=== PATIENT | female | born 1950 | race Caucasian/White ===

== ENCOUNTER 2017-11-04 05:55 | Day surgery (SDC) | payer MEDICARE, BC ==
[2017-11-04] MEDS ORDERED: PROPOFOL 40 ML (08:56)
== END 2017-11-04 10:55 | disposition home or self-care (01) ==
LOC: GIL 05:55
DX: K92.1 Melena (principal); K57.90 Diverticulosis of intestine, part unspecified, without perforation or abscess without bleeding; K64.4 Residual hemorrhoidal skin tags; K64.8 Other hemorrhoids
CPT/HCPCS: 45378